=== PATIENT | female | born 1940 | race Two or more races ===

== ENCOUNTER 2021-01-12 23:39 | Inpatient (IN) | payer OTHER, MEDICAID ==
[~2021-01-12] VITALS: Ht 160 cm; Wt 93.1 kg
[2021-01-13] MEDS ORDERED: fentaNYL CITRATE 100 MCG/2 ML VL IV ONE (01:45)
[2021-01-13] MEDS ORDERED: ONDANSETRON HCL 4 MG/2 ML VIAL IV ONE (01:45)
[2021-01-13] MEDS ORDERED: ONDANSETRON HCL 4 MG/2 ML VIAL IV PRN (07:00)
[2021-01-13] MEDS ORDERED: hydrALAZINE HCL 20 MG/ML VL IV PRN (07:00)
[2021-01-13] MEDS ORDERED: SODIUM CHLORIDE 0.9% 1,000 ML IV ONE (07:00)
[2021-01-13] MEDS ORDERED: ALBUTEROL SULF 2.5 MG/0.5ML(0.5%) NEB SOLN NEB PRN (07:00)
[2021-01-13 07:32] LABS: Basophils # (auto) 0 10 ^3/uL (0-0.2); Basophils % (auto) 0.3 % (0.0-2.0); Eosinophils # (auto) 0.1 10 ^3/uL (0-0.8); Eosinophils % (auto) 0.8 % (0.0-7.0); Hematocrit 40.7 % (36.0-46.0); Hemoglobin 13.4 g/dL (12.2-16.2); Lymphocytes # (auto) 1.5 10 ^3/uL (0.4-5.4); Lymphocytes % (auto) 13.4 % (10.0-50.0); Mean Corpuscular Hemoglobin 28.4 pg (28.0-32.0); Mean Corpuscular Volume 85.9 fL (80.0-100.0); Monocytes # (auto) 0.6 10 ^3/uL (0-1.3); Monocytes % (auto) 5.5 % (0.0-12.0); Nucleated Red Blood Cells % 0.1 %; Platelet Count (auto) 240 10^3/uL (140-450); Red Blood Cells 4.74 10^6/uL (4.0-5.20); White Blood Cell 11.3 10^3/uL (4.4-10.8)
[2021-01-13 07:57] LABS: Potassium 4.3 mmol/L (3.5-5.1)
[2021-01-13 08:05] LABS: Albumin 3.5 g/dL (3.4-5.0); BUN/Creatinine Ratio 22.2; Bilirubin, Total 0.6 mg/dL (0.2-1.0); Calcium 8.5 mg/dL (8.5-10.1); Total Protein 6.9 g/dL (6.4-8.2)
[2021-01-13] MEDS: MORPHINE SULF INJ 2 MG/ML SYRINGE 1ML IV PRN ×2 (08:22→12:39)
[2021-01-13 10:27] VITALS: BP 162/75
[2021-01-13] MEDS ORDERED: BENA10TA14 PO (11:16)
[2021-01-13] MEDS ORDERED: AML5T PO (11:16)
[2021-01-13] MEDS ORDERED: FLUT110A IN (11:16)
[2021-01-13] MEDS ORDERED: ALBUAER3 IN (11:16)
[2021-01-13] MEDS ORDERED: ENOXAPARIN SOD 40 MG/0.4 ML SYRINGE SC ONE (11:30)
[2021-01-13 16:35] LABS: Urine Bacteria FEW /hpf (None Seen); Urine Blood Negative /uL (Negative); Urine Mucus FEW (None Seen); Urine Specific Gravity 1.024 (1.001-1.035); Urine WBC 3 /hpf (0 - 5)
[2021-01-13 16:52] VITALS: BP 157/84
[2021-01-13 22:00] VITALS: BP 131/73
[2021-01-14] VITALS (15 sets, daily range): BP systolic 103–162; BP diastolic 51–77
[2021-01-14] MEDS: MORPHINE SULF INJ 2 MG/ML SYRINGE 1ML IV PRN ×2 (01:50→09:58)
[2021-01-14 06:44] LABS: Basophils # (auto) 0 10 ^3/uL (0-0.2); Basophils % (auto) 0.3 % (0.0-2.0); Eosinophils # (auto) 0.3 10 ^3/uL (0-0.8); Eosinophils % (auto) 3.4 % (0.0-7.0); Hematocrit 38.3 % (36.0-46.0); Hemoglobin 13.2 g/dL (12.2-16.2); Lymphocytes # (auto) 1.4 10 ^3/uL (0.4-5.4); Lymphocytes % (auto) 18.5 % (10.0-50.0); Mean Corpuscular Hemoglobin 29.6 pg (28.0-32.0); Mean Corpuscular Hgb Conc. 34.4 g/dL (32.0-36.0); Mean Corpuscular Volume 86.2 fL (80.0-100.0); Monocytes # (auto) 0.7 10 ^3/uL (0-1.3); Monocytes % (auto) 8.8 % (0.0-12.0); Neutrophils # (auto) 5.3 10 ^3/uL (1.6-8.6); Nucleated Red Blood Cells % 0.1 %; Platelet Count (auto) 197 10^3/uL (140-450); Red Blood Cells 4.45 10^6/uL (4.0-5.20); Red Cell Distribution Width 13.2 % (11.8-14.3); White Blood Cell 7.6 10^3/uL (4.4-10.8)
[2021-01-14 07:11] LABS: Calcium 8.3 mg/dL (8.5-10.1)
[2021-01-14] MEDS ORDERED: ENOXAPARIN SOD 40 MG/0.4 ML SYRINGE SC SCH (10:00)
[2021-01-14] MEDS ORDERED: TETRACAINE 1% INJ 2 ML VIAL IJ ONE (11:57)
[2021-01-14] MEDS ORDERED: fentaNYL CITRATE 100 MCG/2 ML VL ONE (12:03)
[2021-01-14] MEDS ORDERED: MORPHINE SULF(PF) 0.5MG/ML 10ML VIAL ONE (12:03)
[2021-01-14] MEDS ORDERED: MIDAZOLAM HCL 1MG/1ML-2 ML VIAL ONE (12:03)
[2021-01-14] MEDS ORDERED: DexAMETHasone SOD PHOS 10MG/1ML VIAL INJ IV ONE (12:15)
[2021-01-14] MEDS ORDERED: PHENYLEPHRINE HCL 10 MG/ML VL IV ONE (12:15)
[2021-01-14] MEDS ORDERED: CLINDAMYCIN 900MG IV 50 ML IV ONE (12:22)
[2021-01-14] MEDS ORDERED: PROPOFOL 10 MG/ML 20 ML IV ONE (12:54)
[2021-01-14] MEDS ORDERED: DexAMETHasone SOD PHOS 10MG/1ML VIAL INJ IV PRN (13:00)
[2021-01-14] MEDS ORDERED: ONDANSETRON HCL 4 MG/2 ML VIAL IV PRN ×2 (13:00)
[2021-01-14] MEDS ORDERED: HYDROmorphone HCL 2 MG/ML VL IV PRN (13:00)
[2021-01-14] MEDS ORDERED: LABETALOL HCL 5 MG/ML 4ML SYRINGE IV PRN (13:00)
[2021-01-14] MEDS ORDERED: NALOXONE HCL 0.4 MG/ML VIAL IV PRN (13:00)
[2021-01-14] MEDS ORDERED: MIDAZOLAM HCL 1MG/1ML-2 ML VIAL IV PRN (13:00)
[2021-01-14] MEDS ORDERED: diphenhdrAMINE HCL 50 MG/1 ML VL IV PRN (13:00)
[2021-01-14] MEDS ORDERED: ePHEDrine SULFATE 50 MG/ML AMP IV PRN (13:00)
[2021-01-14] MEDS ORDERED: NALBUPHINE HCL 10 MG/1ml INJECTION SUBCUT ONE (13:00)
[2021-01-14] MEDS ORDERED: MORPHINE SULF INJ 2 MG/ML SYRINGE 1ML IV PRN (14:45)
[2021-01-14] MEDS ORDERED: NITROGLYCERIN 0.4 MG SL TAB SL PRN (14:45)
[2021-01-14] MEDS: CLINDAMYCIN 600MG IV 50 ML IV SCH (20:32)
[2021-01-15] VITALS (17 sets, daily range): BP systolic 90–167; BP diastolic 61–86
[2021-01-15 06:17] LABS: Basophils # (auto) 0 10 ^3/uL (0-0.2); Eosinophils # (auto) 0 10 ^3/uL (0-0.8); Hematocrit 35.2 % (36.0-46.0); Hemoglobin 11.9 g/dL (12.2-16.2); Lymphocytes # (auto) 0.7 10 ^3/uL (0.4-5.4); Lymphocytes % (auto) 7.9 % (10.0-50.0); Mean Corpuscular Hemoglobin 29.3 pg (28.0-32.0); Mean Corpuscular Volume 86.3 fL (80.0-100.0); Monocytes # (auto) 0.6 10 ^3/uL (0-1.3); Monocytes % (auto) 6.4 % (0.0-12.0); Neutrophils # (auto) 7.8 10 ^3/uL (1.6-8.6); Neutrophils % (auto) 85.7 % (37.0-80.0); Platelet Count (auto) 203 10^3/uL (140-450); Red Blood Cells 4.08 10^6/uL (4.0-5.20); Red Cell Distribution Width 13.2 % (11.8-14.3); White Blood Cell 9.1 10^3/uL (4.4-10.8)
[2021-01-15 06:33] LABS: Potassium 3.9 mmol/L (3.5-5.1)
[2021-01-15 06:37] LABS: BUN/Creatinine Ratio 34.5
[2021-01-15] MEDS: CLINDAMYCIN 600MG IV 50 ML IV SCH (06:49)
[2021-01-15] MEDS: SODIUM CHLOR 0.9% PF (SALINE LOCK) 10ML VIAL/SYR IV SCH ×3 (06:49→13:45)
[2021-01-15] MEDS: MORPHINE SULF INJ 2 MG/ML SYRINGE 1ML IV PRN (09:45)
[2021-01-15] MEDS ORDERED: ENOXAPARIN SOD 40 MG/0.4 ML SYRINGE SC SCH (10:00)
== END 2021-01-15 15:34 | disposition home health service (06) | DRG 517 ==
LOC: EDBD 23:39 → ER 23:41 → EDBD 23:41 → OVERFLOW 01-13 07:03 → WEST WING 01-13 09:43 → TELE-WESTW 01-14 23:03
PROVIDERS: ADMIT Hospitalist; ATTEND Hospitalist
PROC: BW1C1ZZ Fluoroscopy of Lower Extremity using Low Osmolar Contrast (ICD-10-PCS; 2021-01-14)
PROC: 0YQG0ZZ Repair Left Knee Region, Open Approach (ICD-10-PCS; 2021-01-14)
PROC: 0QSF04Z Reposition Left Patella with Internal Fixation Device, Open Approach (ICD-10-PCS; principal; 2021-01-14 12:25)
DX: S82.032A Displaced transverse fracture of left patella, initial encounter for closed fracture (principal); E78.5 Hyperlipidemia, unspecified; I10 Essential (primary) hypertension; J45.909 Unspecified asthma, uncomplicated; Z20.822 Contact with and (suspected) exposure to COVID-19; W18.39XA Other fall on same level, initial encounter; Y93.89 Activity, other specified; Y92.091 Bathroom in other non-institutional residence as the place of occurrence of the external cause; Y99.8 Other external cause status
CPT/HCPCS: 36415; 70450; 71045; 72170; 73560; 73562; 76001; 80048; 80053; 81001; 85025; 85610; 86850; 86900; 86901; 87426; 93005; 93306; 96361; 96374; 96375; G0378; J1100; J2250; J2405; J2704; J3490

== ENCOUNTER 2023-07-02 14:14 | Inpatient (IN) | payer OTHER, MEDICAID ==
[~2023-07-02] VITALS: Ht 165.1 cm; Wt 71.0 kg
[~2023-07-02 14:14] MED LIST: ALBUAER3 IN; AML5T PO; BENA10TA16 PO; FLUT110A IN
[2023-07-02] MEDS ORDERED: traMADol HCL 50 MG TAB PO ONE (14:45)
[2023-07-02] MEDS ORDERED: ONDANSETRON HCL 4 MG/2 ML VIAL IV ONE ×2 (14:45→21:45)
[2023-07-02 15:39] LABS: Albumin 4.1 g/dL (3.2-4.8); Alkaline Phosphatase 71 U/L (46-116); Anion Gap 9 (5-15); Aspartate Aminotransferase 20 U/L (13-40); BUN/Creatinine Ratio 15.5 (10.0-20.0); Bilirubin, Total 1.7 mg/dL (0.2-1.0); Blood Urea Nitrogen 15 mg/dL (9-23); Calcium 9.4 mg/dL (8.5-10.1); Carbon Dioxide 23 mmol/L (20-30); Chloride 107 mmol/L (98-107); Glucose 187 mg/dL (74-106); Potassium 3.8 mmol/L (3.5-5.1); Sodium 139 mmol/L (136-145); Total Protein 6.7 g/dL (5.7-8.2)
[2023-07-02 15:44] LABS: Basophils # (auto) 0 10 ^3/uL (0-0.2); Basophils % (auto) 0.2 % (0.0-2.0); Eosinophils # (auto) 0.2 10 ^3/uL (0-0.8); Eosinophils % (auto) 1.7 % (0.0-7.0); Hemoglobin 13.6 g/dL (12.2-16.2); INR 1.09 (0.9-1.15); Lymphocytes # (auto) 0.7 10 ^3/uL (0.4-5.4); Lymphocytes % (auto) 5.8 % (10.0-50.0); Mean Corpuscular Hemoglobin 29.1 pg (28.0-32.0); Mean Corpuscular Hgb Conc. 33.3 g/dL (32.0-36.0); Mean Corpuscular Volume 87.5 fL (80.0-100.0); Monocytes # (auto) 0.6 10 ^3/uL (0-1.3); Monocytes % (auto) 4.8 % (0.0-12.0); Neutrophils # (auto) 11.2 10 ^3/uL (1.6-8.6); Neutrophils % (auto) 87.5 % (37.0-80.0); Nucleated Red Blood Cells % 0.1 %; Partial Thromboplastin Time 31.1 SEC (24.5-34.5); Prothrombin Time 11.4 sec (9.3-11.8); Red Blood Cells 4.68 10^6/uL (4.0-5.20); Red Cell Distribution Width 13.2 % (11.8-14.3); White Blood Cell 12.7 10^3/uL (4.4-10.8)
[2023-07-02 16:05] LABS: Alanine Aminotransferase < 9 U/L (7-40)
[2023-07-02 21:34] LABS: INR 1.08 (0.9-1.15); Partial Thromboplastin Time 30.7 SEC (24.5-34.5); Prothrombin Time 11.3 sec (9.3-11.8)
[2023-07-02] MEDS ORDERED: MORPHINE SULFATE INJ 2 MG/ml SYRG IV ONE (21:45)
[2023-07-02] MEDS ORDERED: LACTATED RINGER'S 1,000 ML IV ONE (21:45)
[2023-07-02] MEDS ORDERED: ASPirin 325 MG TAB PO ONE (21:45)
[2023-07-02 22:00] VITALS: PULSE 82; RESP 16; O2SAT 98
[2023-07-02] MEDS ORDERED: ONDANSETRON HCL 4 MG/2 ML VIAL IV PRN (22:30)
[2023-07-02] MEDS ORDERED: MORPHINE SULFATE INJ 2 MG/ml SYRG IV PRN (22:30)
[2023-07-02] MEDS ORDERED: NITROGLYCERIN 0.4 MG SL TAB SL PRN (22:30)
[2023-07-02 23:26] LABS: Urine Bacteria NONE SEEN /hpf (None Seen); Urine Blood 3+ /uL (Negative); Urine Clarity CLOUDY (Clear); Urine Color PINK (Yellow); Urine Hyaline Cast MANY /lpf (0 - 2); Urine Mucus FEW (None Seen); Urine Protein, UAD 1+ (Negative); Urine Specific Gravity 1.024 (1.001-1.035); Urine WBC 204 /hpf (0 - 5); Urine WBC Clumps PRESENT /hpf (None Seen); Urine pH 5.5 (5.0-8.0)
[2023-07-03] VITALS (10 sets, daily range): BP systolic 120–157; BP diastolic 54–74; PULSE 82–105; RESP 12–24; TEMP 97.5–98.3; O2SAT 85–98
[2023-07-03] MEDS ORDERED: cefTRIAXone 1GM/50ML D5W 50 ML IV SCH (01:30)
[2023-07-03] MEDS: CARBIDOPA W LEVODOPA 25/100mg TABLET PO SCH ×3 (06:22→21:59)
[2023-07-03 06:48] LABS: Basophils # (auto) 0 10 ^3/uL (0-0.2); Basophils % (auto) 0.3 % (0.0-2.0); Eosinophils # (auto) 0.7 10 ^3/uL (0-0.8); Eosinophils % (auto) 7.5 % (0.0-7.0); Hematocrit 37.1 % (36.0-46.0); Hemoglobin 12.3 g/dL (12.2-16.2); Lymphocytes # (auto) 1.1 10 ^3/uL (0.4-5.4); Lymphocytes % (auto) 11.6 % (10.0-50.0); Mean Corpuscular Hemoglobin 29.4 pg (28.0-32.0); Mean Corpuscular Hgb Conc. 33.1 g/dL (32.0-36.0); Mean Corpuscular Volume 88.6 fL (80.0-100.0); Monocytes # (auto) 0.6 10 ^3/uL (0-1.3); Monocytes % (auto) 6.5 % (0.0-12.0); Neutrophils % (auto) 74.1 % (37.0-80.0); Red Blood Cells 4.19 10^6/uL (4.0-5.20); Red Cell Distribution Width 13.5 % (11.8-14.3); White Blood Cell 9.5 10^3/uL (4.4-10.8)
[2023-07-03 06:54] LABS: Albumin 3.5 g/dL (3.2-4.8); Alkaline Phosphatase 65 U/L (46-116); Anion Gap 6 (5-15); Aspartate Aminotransferase 16 U/L (13-40); BUN/Creatinine Ratio 18.8 (10.0-20.0); Bilirubin, Total 0.9 mg/dL (0.2-1.0); Blood Urea Nitrogen 21 mg/dL (9-23); Calcium 8.7 mg/dL (8.7-10.4); Carbon Dioxide 27 mmol/L (20-30); Chloride 108 mmol/L (98-107); Glucose 112 mg/dL (74-106); Sodium 141 mmol/L (136-145); Total Protein 5.7 g/dL (5.7-8.2)
[2023-07-03 07:10] LABS: Alanine Aminotransferase < 9 U/L (7-40)
[2023-07-03] MEDS: BENAZEPRIL HCL 10 MG TAB PO SCH (09:27)
[2023-07-03] MEDS ORDERED: HCTZ 25 MG TAB PO SCH (10:00)
[2023-07-03] MEDS: AMPICILLIN & SULBACTAM SODIUM 3 GM in SODIUM CHL 0.9% 100 ML IV SCH ×3 (12:46→22:47)
[2023-07-03 14:22] LABS: Urine Bacteria NONE SEEN /hpf (None Seen); Urine Blood 2+ /uL (Negative); Urine Clarity HAZY (Clear); Urine Color Yellow (Yellow); Urine Hyaline Cast FEW /lpf (0 - 2); Urine Mucus FEW (None Seen); Urine Protein, UAD TRACE (Negative); Urine Specific Gravity 1.021 (1.001-1.035); Urine Urobilinogen Normal (Negative); Urine WBC 21 /hpf (0 - 5); Urine pH 5.5 (5.0-8.0)
[2023-07-03] MEDS ORDERED: fentaNYL CITRATE 100 MCG/2 ML VL ONE (15:59)
[2023-07-03] MEDS ORDERED: VERAPAMIL 2.5MG/ML INJ 2ML VIAL IV ONE (15:59)
[2023-07-03] MEDS ORDERED: ANGIOMAX 250 MG VIAL IV ONE (15:59)
[2023-07-03] MEDS ORDERED: SODIUM CHL 0.9% 0 ML ONE (16:00)
[2023-07-03] MEDS ORDERED: LIDOCAINE 2%HCL (LOCAL ANESTH.) INJ 20ML MDV ONE ×2 (16:00→17:13)
[2023-07-03] MEDS ORDERED: IODIXANOL 320MG/ML 100ML BTL IV ONE ×2 (16:00→17:07)
[2023-07-03] MEDS ORDERED: MIDAZOLAM HCL 2MG/2ML 2ml VIAL (1mg/ml) ONE (16:00)
[2023-07-03] MEDS ORDERED: VANCOMYCIN 1GM/250ML 250 ML IV ONE (16:17)
[2023-07-03] MEDS ORDERED: VANCOMYCIN HCL 1000 MG VL ONE (17:11)
[2023-07-03] MEDS: HYDROcodone-ACET 5/325MG TAB PO PRN (22:42)
[2023-07-03] MEDS: SODIUM CHLORIDE 0.9% 1,000 ML IV SCH (23:30)
[2023-07-04] MEDS: MORPHINE SULFATE INJ 2 MG/ml SYRG IV PRN ×2 (00:40→05:19)
[2023-07-04 05:00] VITALS: BP 94/50; PULSE 123; RESP 22; TEMP 98.4; O2SAT 90
[2023-07-04] MEDS: AMPICILLIN & SULBACTAM SODIUM 3 GM in SODIUM CHL 0.9% 100 ML IV SCH ×2 (05:10→12:34)
[2023-07-04] MEDS: CARBIDOPA W LEVODOPA 25/100mg TABLET PO SCH ×3 (05:10→22:12)
[2023-07-04 07:16] LABS: Albumin 3.1 g/dL (3.2-4.8); Alkaline Phosphatase 54 U/L (46-116); Anion Gap 13 (5-15); Aspartate Aminotransferase 15 U/L (13-40); BUN/Creatinine Ratio 13.2 (10.0-20.0); Bilirubin, Total 0.6 mg/dL (0.2-1.0); Blood Urea Nitrogen 14 mg/dL (9-23); Calcium 7.5 mg/dL (8.5-10.1); Carbon Dioxide 21 mmol/L (20-30); Chloride 108 mmol/L (98-107); Cholesterol 165 mg/dL (< 200); Glucose 109 mg/dL (74-106); HDL Cholesterol 61 mg/dL (40-59); LDL Cholesterol 89 mg/dL (< 100); Potassium 3.8 mmol/L (3.5-5.1); Sodium 142 mmol/L (136-145); Total Protein 5.4 g/dL (5.7-8.2); Triglycerides 92 mg/dL (< 150)
[2023-07-04 07:17] LABS: Basophils # (auto) 0 10 ^3/uL (0-0.2); Basophils % (auto) 0.3 % (0.0-2.0); Eosinophils # (auto) 0.1 10 ^3/uL (0-0.8); Eosinophils % (auto) 0.8 % (0.0-7.0); Hematocrit 33.5 % (36.0-46.0); Hemoglobin 11.2 g/dL (12.2-16.2); Lymphocytes # (auto) 0.5 10 ^3/uL (0.4-5.4); Lymphocytes % (auto) 6.4 % (10.0-50.0); Mean Corpuscular Hemoglobin 29.4 pg (28.0-32.0); Mean Corpuscular Hgb Conc. 33.4 g/dL (32.0-36.0); Monocytes # (auto) 0.6 10 ^3/uL (0-1.3); Monocytes % (auto) 6.7 % (0.0-12.0); Neutrophils # (auto) 7.3 10 ^3/uL (1.6-8.6); Neutrophils % (auto) 85.8 % (37.0-80.0); Nucleated Red Blood Cells % 0.1 %; Red Blood Cells 3.81 10^6/uL (4.0-5.20); Red Cell Distribution Width 13.4 % (11.8-14.3); White Blood Cell 8.5 10^3/uL (4.4-10.8)
[2023-07-04 07:18] LABS: Alanine Aminotransferase < 9 U/L (7-40)
[2023-07-04 08:00] VITALS: BP 92/53; PULSE 120; PULSE 88; RESP 18; RESP 19; TEMP 97.9; O2SAT 90; O2SAT 95
[2023-07-04 08:04] LABS: Magnesium 1.5 mg/dL (1.6-2.6)
[2023-07-04] MEDS ORDERED: SODIUM CHLORIDE 0.9% 500 ML IV ONE (09:45)
[2023-07-04] MEDS: BENAZEPRIL HCL 10 MG TAB PO SCH (10:00)
[2023-07-04] MEDS: MAGNESIUM SULFATE 1GM/100ML 100 ML IV SCH ×2 (10:39→11:43)
[2023-07-04] MEDS ORDERED: IOHEXOL 350 MG/ML 100ML IJ ONE ×2 (11:44→15:24)
[2023-07-04 12:00] VITALS: BP 98/49; PULSE 75; RESP 18; TEMP 97.7; O2SAT 99
[2023-07-04] MEDS: SODIUM CHLORIDE 0.9% 1,000 ML IV SCH (12:34)
[2023-07-04 16:00] VITALS: BP 119/51; PULSE 86; RESP 18; TEMP 98.1; O2SAT 97
[2023-07-04] MEDS ORDERED: LACTULOSE 20Gm/30ML SOLN PO ONE (17:00)
[2023-07-04 20:00] VITALS: PULSE 95; O2SAT 95
[2023-07-04 22:00] VITALS: BP 129/60; PULSE 89; RESP 19; TEMP 98.5; O2SAT 96
[2023-07-04] MEDS: PIPERACILLIN-TAZOB 3.375GM 100 ML IV SCH (22:13)
[2023-07-05] VITALS (8 sets, daily range): BP systolic 108–149; BP diastolic 55–85; PULSE 14–98; RESP 16–18; TEMP 97.6–98.1; O2SAT 95–100
[2023-07-05] MEDS: PIPERACILLIN-TAZOB 3.375GM 100 ML IV SCH ×3 (05:12→21:55)
[2023-07-05] MEDS: CARBIDOPA W LEVODOPA 25/100mg TABLET PO SCH ×3 (05:15→21:55)
[2023-07-05 06:06] LABS: Basophils # (auto) 0 10 ^3/uL (0-0.2); Basophils % (auto) 0.5 % (0.0-2.0); Eosinophils # (auto) 0.6 10 ^3/uL (0-0.8); Eosinophils % (auto) 7.8 % (0.0-7.0); Hematocrit 34.4 % (36.0-46.0); Hemoglobin 11.3 g/dL (12.2-16.2); Lymphocytes # (auto) 1.1 10 ^3/uL (0.4-5.4); Lymphocytes % (auto) 15.5 % (10.0-50.0); Mean Corpuscular Hemoglobin 28.8 pg (28.0-32.0); Mean Corpuscular Hgb Conc. 32.7 g/dL (32.0-36.0); Monocytes # (auto) 0.8 10 ^3/uL (0-1.3); Monocytes % (auto) 10.6 % (0.0-12.0); Neutrophils # (auto) 4.8 10 ^3/uL (1.6-8.6); Neutrophils % (auto) 65.6 % (37.0-80.0); Red Blood Cells 3.91 10^6/uL (4.0-5.20); Red Cell Distribution Width 13.2 % (11.8-14.3); White Blood Cell 7.3 10^3/uL (4.4-10.8)
[2023-07-05 06:14] LABS: Albumin 3.1 g/dL (3.2-4.8); Alkaline Phosphatase 59 U/L (46-116); Anion Gap 5 (5-15); Aspartate Aminotransferase 18 U/L (13-40); BUN/Creatinine Ratio 26.6 (10.0-20.0); Bilirubin, Total 0.7 mg/dL (0.2-1.0); Blood Urea Nitrogen 21 mg/dL (9-23); Calcium 8.3 mg/dL (8.7-10.4); Carbon Dioxide 28 mmol/L (20-30); Chloride 106 mmol/L (98-107); Magnesium 2.2 mg/dL (1.6-2.6); Sodium 139 mmol/L (136-145); Total Protein 5.1 g/dL (5.7-8.2)
[2023-07-05 06:17] LABS: Alanine Aminotransferase < 9 U/L (7-40)
[2023-07-05 08:00] LABS: Glucose 134 mg/dL (74-106)
[2023-07-05] MEDS ORDERED: ERGOCALCIFEROL 50,000 UNIT(1.25MG) CAP PO SCH (08:30)
[2023-07-05] MEDS ORDERED: CYANOCOBALAMIN (B-12) 1000 MCG/1 ML VIAL IM ONE (08:30)
[2023-07-05] MEDS: BENAZEPRIL HCL 10 MG TAB PO SCH (10:48)
[2023-07-05] MEDS ORDERED: ceFAZolin 1GM/50ML 100 ML IV ONE (12:19)
[2023-07-05] MEDS ORDERED: LIDOCAINE 2% (LOCAL ANESTH.) PF 5ml SDV ONE (12:49)
[2023-07-05] MEDS ORDERED: fentaNYL CITRATE 100 MCG/2 ML VL ONE (12:53)
[2023-07-05] MEDS ORDERED: MIDAZOLAM HCL 2MG/2ML 2ml VIAL (1mg/ml) ONE (12:53)
[2023-07-05] MEDS: METOPROLOL SUCCINATE XL 50 MG TAB PO SCH (12:53)
[2023-07-05] MEDS ORDERED: TETRACAINE 1% INJ 2 ML VIAL IJ ONE (12:55)
[2023-07-05] MEDS: TRANEXAMIC ACID 20 ML ONE ×2 (13:47→13:50)
[2023-07-05] MEDS ORDERED: ONDANSETRON HCL 4 MG/2 ML VIAL IV PRN (14:00)
[2023-07-05] MEDS ORDERED: MIDAZOLAM HCL 2MG/2ML 2ml VIAL (1mg/ml) IV PRN (14:00)
[2023-07-05] MEDS ORDERED: LABETALOL HCL 5 MG/ML 4ML SYRINGE IV PRN (14:00)
[2023-07-05] MEDS ORDERED: HYDROmorphone HCL 2 MG/ML VL/or syr IV PRN (14:00)
[2023-07-05] MEDS ORDERED: ePHEDrine SULFATE 50 MG/ML AMP IV PRN (14:00)
[2023-07-05] MEDS ORDERED: MORPHINE SULFATE 4 MG/ML SYR/VIAL IV PRN (14:00)
[2023-07-05] MEDS ORDERED: ROPIVACAINE 0.5% (5MG/ML) 20ML AMPULE IJ ONE (14:22)
[2023-07-05] MEDS ORDERED: VANCOMYCIN HCL 1000 MG VL ONE (14:27)
[2023-07-05] MEDS ORDERED: DexAMETHasone SOD PHOS 10MG/1ML VIAL INJ ONE (14:32)
[2023-07-05] MEDS: SODIUM CHLORIDE 0.9% 1,000 ML IV SCH (15:00)
[2023-07-05] MEDS ORDERED: ONDANSETRON HCL 4 MG/2 ML VIAL IV ONE (16:39)
[2023-07-05] MEDS ORDERED: PHENYLEPHRINE HCL 10 MG/ML VL IV ONE (16:39)
[2023-07-05] MEDS: ceFAZolin 2 GM/D5W100ml 100 ML IV SCH (20:45)
[2023-07-06] VITALS (7 sets, daily range): BP systolic 125–158; BP diastolic 65–77; PULSE 79–99; RESP 17–20; TEMP 97.3–98.4; O2SAT 92–99
[2023-07-06] MEDS: SODIUM CHLORIDE 0.9% 1,000 ML IV SCH (01:00)
[2023-07-06] MEDS: ceFAZolin 2 GM/D5W100ml 100 ML IV SCH (05:02)
[2023-07-06] MEDS: CARBIDOPA W LEVODOPA 25/100mg TABLET PO SCH ×3 (06:24→21:43)
[2023-07-06] MEDS: PIPERACILLIN-TAZOB 3.375GM 100 ML IV SCH ×3 (06:24→21:43)
[2023-07-06 06:58] LABS: Calcium 8.7 mg/dL (8.7-10.4); Chloride 106 mmol/L (98-107); Potassium 4.5 mmol/L (3.5-5.1); Sodium 138 mmol/L (136-145)
[2023-07-06 06:59] LABS: Anion Gap 5 (5-15); Carbon Dioxide 27 mmol/L (20-30)
[2023-07-06 07:03] LABS: Basophils # (auto) 0 10 ^3/uL (0-0.2); Basophils % (auto) 0.1 % (0.0-2.0); Eosinophils # (auto) 0 10 ^3/uL (0-0.8); Eosinophils % (auto) 0.1 % (0.0-7.0); Hematocrit 34.3 % (36.0-46.0); Hemoglobin 11.3 g/dL (12.2-16.2); Lymphocytes # (auto) 0.5 10 ^3/uL (0.4-5.4); Lymphocytes % (auto) 5.4 % (10.0-50.0); Mean Corpuscular Volume 87.7 fL (80.0-100.0); Monocytes # (auto) 0.6 10 ^3/uL (0-1.3); Monocytes % (auto) 6.3 % (0.0-12.0); Neutrophils # (auto) 8.4 10 ^3/uL (1.6-8.6); Neutrophils % (auto) 88.1 % (37.0-80.0); Nucleated Red Blood Cells % 0.1 %; Red Blood Cells 3.91 10^6/uL (4.0-5.20); Red Cell Distribution Width 13.2 % (11.8-14.3); White Blood Cell 9.5 10^3/uL (4.4-10.8)
[2023-07-06 07:04] LABS: BUN/Creatinine Ratio 17.2 (10.0-20.0); Blood Urea Nitrogen 11 mg/dL (9-23); Glucose 171 mg/dL (74-106)
[2023-07-06] MEDS ORDERED: LACTULOSE 20Gm/30ML SOLN PO ONE (07:30)
[2023-07-06 09:05] LABS: COVID19 ANTIGEN SOFIA FIA NEGATIVE (NEGATIVE)
[2023-07-06] MEDS: BENAZEPRIL HCL 10 MG TAB PO SCH (10:17)
[2023-07-06] MEDS: CYANOCOBALAMIN 500 MCG TAB PO SCH (10:17)
[2023-07-06] MEDS: METOPROLOL SUCCINATE XL 50 MG TAB PO SCH (10:18)
[2023-07-06] MEDS: ENOXAPARIN SOD 40 MG/0.4 ML SYRINGE SC SCH (10:18)
[2023-07-06] MEDS ORDERED: BISACODYL 5 MG EC TAB PO ONE (11:45)
[2023-07-06] MEDS: HYDROcodone-ACET 5/325MG TAB PO PRN (21:44)
[2023-07-07] VITALS (7 sets, daily range): BP systolic 122–146; BP diastolic 41–67; PULSE 78–88; RESP 18–20; TEMP 97.9–98.9; O2SAT 90–99
[2023-07-07] MEDS: HYDROcodone-ACET 5/325MG TAB PO PRN (05:12)
[2023-07-07] MEDS: PIPERACILLIN-TAZOB 3.375GM 100 ML IV SCH ×3 (05:12→21:28)
[2023-07-07 05:47] LABS: Basophils # (auto) 0 10 ^3/uL (0-0.2); Basophils % (auto) 0.3 % (0.0-2.0); Eosinophils # (auto) 0.3 10 ^3/uL (0-0.8); Eosinophils % (auto) 4.3 % (0.0-7.0); Hematocrit 33.6 % (36.0-46.0); Hemoglobin 11.3 g/dL (12.2-16.2); Lymphocytes # (auto) 0.8 10 ^3/uL (0.4-5.4); Lymphocytes % (auto) 10.2 % (10.0-50.0); Mean Corpuscular Hemoglobin 29.5 pg (28.0-32.0); Mean Corpuscular Hgb Conc. 33.7 g/dL (32.0-36.0); Mean Corpuscular Volume 87.6 fL (80.0-100.0); Monocytes # (auto) 0.6 10 ^3/uL (0-1.3); Monocytes % (auto) 7.8 % (0.0-12.0); Neutrophils # (auto) 6.3 10 ^3/uL (1.6-8.6); Neutrophils % (auto) 77.4 % (37.0-80.0); Red Blood Cells 3.84 10^6/uL (4.0-5.20); White Blood Cell 8.2 10^3/uL (4.4-10.8)
[2023-07-07 06:05] LABS: Albumin 3.4 g/dL (3.2-4.8); Alkaline Phosphatase 64 U/L (46-116); Anion Gap 6 (5-15); Aspartate Aminotransferase 25 U/L (13-40); BUN/Creatinine Ratio 17.9 (10.0-20.0); Blood Urea Nitrogen 12 mg/dL (9-23); Calcium 8.7 mg/dL (8.5-10.1); Carbon Dioxide 28 mmol/L (20-30); Chloride 107 mmol/L (98-107); Glucose 109 mg/dL (74-106); Potassium 3.8 mmol/L (3.5-5.1); Sodium 141 mmol/L (136-145); Total Protein 5.7 g/dL (5.7-8.2)
[2023-07-07 06:08] LABS: Alanine Aminotransferase < 9 U/L (7-40)
[2023-07-07 06:13] LABS: CRP High Sensitivity 4.73 mg/dL (<1.0)
[2023-07-07] MEDS: CARBIDOPA W LEVODOPA 25/100mg TABLET PO SCH ×3 (06:57→21:28)
[2023-07-07 07:07] LABS: Magnesium 1.8 mg/dL (1.6-2.6)
[2023-07-07] MEDS: ENOXAPARIN SOD 40 MG/0.4 ML SYRINGE SC SCH (09:43)
[2023-07-07] MEDS: METOPROLOL SUCCINATE XL 50 MG TAB PO SCH (09:44)
[2023-07-07] MEDS: CYANOCOBALAMIN 500 MCG TAB PO SCH (09:44)
[2023-07-07] MEDS: BENAZEPRIL HCL 10 MG TAB PO SCH (09:44)
[2023-07-08 05:00] VITALS: BP 125/48; PULSE 75; RESP 17; TEMP 99.6; O2SAT 97
[2023-07-08] MEDS: PIPERACILLIN-TAZOB 3.375GM 100 ML IV SCH ×3 (05:36→21:27)
[2023-07-08] MEDS: CARBIDOPA W LEVODOPA 25/100mg TABLET PO SCH ×3 (05:37→21:32)
[2023-07-08] MEDS: ACETAMINOPHEN 325 MG TAB PO PRN (05:37)
[2023-07-08 05:39] LABS: Basophils # (auto) 0 10 ^3/uL (0-0.2); Basophils % (auto) 0.5 % (0.0-2.0); Eosinophils # (auto) 0.5 10 ^3/uL (0-0.8); Eosinophils % (auto) 7.3 % (0.0-7.0); Hematocrit 31.7 % (36.0-46.0); Hemoglobin 10.6 g/dL (12.2-16.2); Lymphocytes # (auto) 1.1 10 ^3/uL (0.4-5.4); Lymphocytes % (auto) 17.4 % (10.0-50.0); Mean Corpuscular Hemoglobin 29.3 pg (28.0-32.0); Mean Corpuscular Hgb Conc. 33.4 g/dL (32.0-36.0); Mean Corpuscular Volume 87.6 fL (80.0-100.0); Monocytes # (auto) 0.8 10 ^3/uL (0-1.3); Monocytes % (auto) 12.4 % (0.0-12.0); Neutrophils % (auto) 62.4 % (37.0-80.0); Red Blood Cells 3.62 10^6/uL (4.0-5.20); Red Cell Distribution Width 13.4 % (11.8-14.3); White Blood Cell 6.3 10^3/uL (4.4-10.8)
[2023-07-08 06:03] LABS: Anion Gap 4 (5-15); Calcium 8.5 mg/dL (8.7-10.4); Carbon Dioxide 28 mmol/L (20-30); Chloride 107 mmol/L (98-107); Potassium 4.1 mmol/L (3.5-5.1); Sodium 139 mmol/L (136-145)
[2023-07-08 06:08] LABS: Glucose 106 mg/dL (74-106)
[2023-07-08 06:09] LABS: Blood Urea Nitrogen 11 mg/dL (9-23); Magnesium 1.9 mg/dL (1.6-2.6)
[2023-07-08 08:00] VITALS: BP 107/64; PULSE 48; PULSE 65; PULSE 75; PULSE 98; RESP 20; RESP 22; TEMP 98.5; O2SAT 98
[2023-07-08] MEDS: ENOXAPARIN SOD 40 MG/0.4 ML SYRINGE SC SCH (09:54)
[2023-07-08] MEDS: CYANOCOBALAMIN 500 MCG TAB PO SCH (09:55)
[2023-07-08] MEDS: BENAZEPRIL HCL 10 MG TAB PO SCH (09:55)
[2023-07-08] MEDS: METOPROLOL SUCCINATE XL 50 MG TAB PO SCH (09:56)
[2023-07-08 13:00] VITALS: BP 128/58; PULSE 73; RESP 20; TEMP 98.4; O2SAT 98
[2023-07-08 17:00] VITALS: BP 135/46; PULSE 83; RESP 20; TEMP 98.4; O2SAT 93
[2023-07-08 20:00] VITALS: PULSE 83; RESP 18; O2SAT 96
[2023-07-08] MEDS: MORPHINE SULFATE INJ 2 MG/ml SYRG IV PRN (21:44)
[2023-07-08 22:00] VITALS: BP 135/59; PULSE 77; RESP 18; TEMP 97.8; O2SAT 96
[2023-07-09 05:02] VITALS: BP 104/44; PULSE 65; RESP 17; TEMP 97.8; O2SAT 90
[2023-07-09] MEDS: CARBIDOPA W LEVODOPA 25/100mg TABLET PO SCH ×2 (05:39→14:00)
[2023-07-09] MEDS: PIPERACILLIN-TAZOB 3.375GM 100 ML IV SCH ×2 (05:41→14:00)
[2023-07-09 07:29] LABS: Hematocrit 31.9 % (36.0-46.0); Hemoglobin 10.4 g/dL (12.2-16.2); Mean Corpuscular Hemoglobin 28.9 pg (28.0-32.0); Mean Corpuscular Hgb Conc. 32.7 g/dL (32.0-36.0); Mean Corpuscular Volume 88.3 fL (80.0-100.0); Red Blood Cells 3.62 10^6/uL (4.0-5.20); White Blood Cell 7.3 10^3/uL (4.4-10.8)
[2023-07-09 07:30] LABS: Chloride 109 mmol/L (98-107); Potassium 3.9 mmol/L (3.5-5.1); Sodium 140 mmol/L (136-145)
[2023-07-09 07:31] LABS: Anion Gap 4 (5-15); Calcium 8.4 mg/dL (8.5-10.1); Carbon Dioxide 27 mmol/L (20-30)
[2023-07-09 07:33] LABS: Band Neutrophils % (manual) 0; Basophils % (manual) 0 (0.0-2.0); Blast Cells 0; Metamyelocytes % 0; Promyelocytes % 0; Reactive Lymphocytes 0
[2023-07-09 07:36] LABS: BUN/Creatinine Ratio 18.8 (10.0-20.0); Blood Urea Nitrogen 12 mg/dL (9-23); Glucose 117 mg/dL (74-106)
[2023-07-09 08:00] VITALS: PULSE 65; PULSE 87; RESP 20; O2SAT 94
[2023-07-09] MEDS ORDERED: CHOLCAP4 PO (08:30)
[2023-07-09] MEDS ORDERED: CYAN-17 PO (08:30)
[2023-07-09] MEDS ORDERED: CEPH250C PO (08:30)
[2023-07-09 08:48] LABS: Eosinophils % (manual) 8 (0-7); Lymphocytes % (manual) 10 (10.0-50.0); Monocytes % (manual) 6 (0-12); Myelocytes % 1; Platelet Estimate Adequate
[2023-07-09 09:00] VITALS: BP 118/49; PULSE 87; RESP 18; TEMP 98.2; O2SAT 88
[2023-07-09 09:19] LABS: Magnesium 2.1 mg/dL (1.6-2.6)
[2023-07-09] MEDS: METOPROLOL SUCCINATE XL 50 MG TAB PO SCH (09:41)
[2023-07-09] MEDS: BENAZEPRIL HCL 10 MG TAB PO SCH (09:42)
[2023-07-09] MEDS: ENOXAPARIN SOD 40 MG/0.4 ML SYRINGE SC SCH (09:43)
[2023-07-09] MEDS: ACETAMINOPHEN 325 MG TAB PO PRN (10:02)
[2023-07-09] MEDS: CYANOCOBALAMIN 500 MCG TAB PO SCH (10:02)
[2023-07-09 11:09] VITALS: PULSE 87; RESP 20; O2SAT 94
[2023-07-09 11:20] LABS: Free T4 (Free Thyroxine) 1.24 ng/dL (0.89-1.76)
[2023-07-09 13:00] VITALS: BP 115/61; PULSE 74; RESP 17; TEMP 98; O2SAT 99
== END 2023-07-09 16:40 | disposition home health service (06) | DRG 521 ==
LOC: ER 14:14 → TELE 22:20 → TELE-CENTR 23:40
PROVIDERS: ADMIT Internal Medicine; ATTEND Student in an Organized Health Care Education/Training Program
PROC: 4A023N7 Measurement of Cardiac Sampling and Pressure, Left Heart, Percutaneous Approach (ICD-10-PCS; 2023-07-03)
PROC: B211YZZ Fluoroscopy of Multiple Coronary Arteries using Other Contrast (ICD-10-PCS; 2023-07-03)
PROC: 0JH606Z Insertion of Pacemaker, Dual Chamber into Chest Subcutaneous Tissue and Fascia, Open Approach (ICD-10-PCS; 2023-07-03)
PROC: 02H63JZ Insertion of Pacemaker Lead into Right Atrium, Percutaneous Approach (ICD-10-PCS; 2023-07-03)
PROC: 02HK3JZ Insertion of Pacemaker Lead into Right Ventricle, Percutaneous Approach (ICD-10-PCS; 2023-07-03)
PROC: B51NYZZ Fluoroscopy of Left Upper Extremity Veins using Other Contrast (ICD-10-PCS; 2023-07-03)
PROC: 0SRR0J9 Replacement of Right Hip Joint, Femoral Surface with Synthetic Substitute, Cemented, Open Approach (ICD-10-PCS; principal; 2023-07-05 13:02)
DX: S72.001A Fracture of unspecified part of neck of right femur, initial encounter for closed fracture (principal); I21.A1 Myocardial infarction type 2; N17.0 Acute kidney failure with tubular necrosis; I46.9 Cardiac arrest, cause unspecified; I50.43 Acute on chronic combined systolic (congestive) and diastolic (congestive) heart failure; J96.21 Acute and chronic respiratory failure with hypoxia; J15.69 Pneumonia due to other Gram-negative bacteria; N39.0 Urinary tract infection, site not specified; I44.2 Atrioventricular block, complete; Z20.822 Contact with and (suspected) exposure to COVID-19; K57.30 Diverticulosis of large intestine without perforation or abscess without bleeding; J45.909 Unspecified asthma, uncomplicated; I11.0 Hypertensive heart disease with heart failure; E86.0 Dehydration; G20.A1 Parkinson's disease without dyskinesia, without mention of fluctuations; I25.10 Atherosclerotic heart disease of native coronary artery without angina pectoris; I49.5 Sick sinus syndrome; E04.2 Nontoxic multinodular goiter; E55.9 Vitamin D deficiency, unspecified; M71.22 Synovial cyst of popliteal space [Baker], left knee; N28.1 Cyst of kidney, acquired; E78.5 Hyperlipidemia, unspecified; R73.9 Hyperglycemia, unspecified; E53.8 Deficiency of other specified B group vitamins; K59.00 Constipation, unspecified; W18.39XA Other fall on same level, initial encounter; Y93.89 Activity, other specified; Y92.89 Other specified places as the place of occurrence of the external cause; Y99.8 Other external cause status
CPT/HCPCS: 33208; 36415; 70450; 71045; 71250; 71275; 72125; 72170; 73502; 74176; 76536; 78582; 80048; 80053; 80061; 81001; 82306; 82607; 83605; 83735; 83880; 84439; 84443; 84481; 84484; 85007; 85025; 85027; 85379; 85610; 85730; 86141; 86850; 86900; 86901; 87086; 87426; 93005; 93306; 93458; 93970; 97110; 97116; 97163; 97530; 99152; A4565; G0378; J0690; J0696; J1100; J2001; J2250; J2405; J2543; Q9967